=== PATIENT | female | born 1995 | race Caucasian/White ===

== ENCOUNTER 2016-09-28 02:09 | Emergency (ER) | payer OTHER ==
[2016-09-28 02:09] LABS: URINE SOURCE CLEAN CATCH
[~2016-09-28 02:09] MED LIST: BACTRIM DS TABL1 TA1 PO; COLD MED; COUGH; FLEXERIL10 MG PO; MUCINEX; NAPROSYN500 MG PO; NO MEDICATIONS; PRENATAL ONE T1 EACH PO; TYLENOL/CO12 MG/5 ML PO; ZITHROMAX PO
[2016-09-28 02:11] LABS: URINE APPEARANCE TURBID; URINE BILIRUBIN NEG (NEG); URINE BLOOD 3+ (NEG); URINE COLOR RED; URINE GLUCOSE NEG (NORM); URINE LEUKOCYTE ESTERASE TRACE (NEG); URINE NITRATE POS (NEG); URINE PROTEIN 2+ (NEG); URINE SPECIFIC GRAVITY >=1.030 (1.003-1.035)
[2016-09-28 02:12] LABS: URINE KETONE 3+ (NEG)
[2016-09-28 02:13] LABS: MICRO INDICATED? YES
[2016-09-28 02:14] LABS: CULTURE INDICATED? YES; URINE BACTERIA 1+ (NEG); URINE MUCUS PRESENT; URINE RBC 100-200 /[HPF] (0-2); URINE SQUAMOUS EPITHELIAL CELL OCCAS /[HPF]
== END 2016-09-28 02:40 | disposition home or self-care (01) ==
LOC: SED 02:09
PROVIDERS: Emergency Medicine
DX: O23.13 Infections of bladder in pregnancy, third trimester (principal); O24.113 Pre-existing type 2 diabetes mellitus, in pregnancy, third trimester; N30.01 Acute cystitis with hematuria; E11.9 Type 2 diabetes mellitus without complications; Z86.14 Personal history of Methicillin resistant Staphylococcus aureus infection
CPT/HCPCS: 81003; 87086; 99284

== ENCOUNTER 2016-11-24 02:59 | Emergency (ER) | payer OTHER ==
--- NOTE | ~2016-11-24 | CT16 ---
[facility] A Service of [facility] RADIOLOGY TEXT RESULTS PATIENT: KATY FARIA LOCATION: SED : [birth year] UNIT #: [id number] AGE: [address]: Frankie Sandoval MD SEX: F ORDER DR: [id number] [address] [address] [id number] E MR#: [id number] Acc #: [id number] NAME: KATY FARIA : 1995 SEX: F STUDY DATE/TIME: 11/24/2016 4:29 UNIT: SED ROOM: STUDY DESCRIPTION: CT Angio Chest for PE Attending Physician: Frankie Sandoval M.D. Ordering Physician: Frankie Sandoval M.D. MEDICAL IMAGING REPORT This report is preliminary unless electronic signature is present. EXAM CTA chest PE protocol INDICATION Mid chest pain tonight. PROCEDURE Contrast-enhanced CTA of the chest attention on opacification of the pulmonary arteries. Coronal 3-D MIP sagittal reformatted images reconstructed and submitted. This CT exam was performed with one or more of the following radiation dose reduction techniques: automatic exposure control, adjustment of mA and/or kV according to patient size, and iterative reconstruction. COMPARISON None. FINDINGS No pulmonary embolus or evidence for acute aortic injury. No adenopathy. Nonspecific gallbladder wall thickening or pericholecystic fluid. Lungs are clear. No aggressive-appearing bone lesion. IMPRESSION 1. No acute findings and no evidence of pulmonary embolus. 2. Gallbladder wall thickening, nonspecific. Correlate within the right upper quadrant abdominal symptoms. Dictated by... Bull Tiwari M.D. [facility] A Service of [facility] RADIOLOGY TEXT RESULTS PATIENT: KATY FARIA LOCATION: SED : [birth year] UNIT #: [id number] AGE: [address]: Frankie Sandoval MD SEX: F ORDER DR: THIS IS AN ELECTRONICALLY VERIFIED REPORT Bull Tiwari M.D. at 11/24/2016 10:27 PM EED/yordy TD: 11/24/2016 05:07 JOB #: [id number] MEDICAL IMAGING REPORT Page 1 of 1
--- NOTE | ~2016-11-24 | EKG ---
PATIENT: KATY FARIA UNIT #: [id number] Ventricular Rate: 92 BPM Atrial Rate: 92 BPM P-R Interval: 146 ms QRS Duration: 82 ms Q-T Interval: 366 ms QTC Calculation(Bezet): 452 ms P [place]: 39 degrees Calculated R [place]: 28 degrees Calculated T [place]: 44 degrees Diagnosis Line: Normal sinus rhythm Diagnosis Line: Nonspecific ST abnormality Diagnosis Line: Abnormal ECG Diagnosis Line: No previous ECGs available Diagnosis Line: Confirmed by GINA AGUILERA MD ([id number]) on Diagnosis Line: 11/24/2016 4:50:21 PM INTERPRETING MD: WILLY MADISON
[2016-11-24 03:46] LABS: BASOPHIL# 0.1 X10e3 (0-0.3); BASOPHIL% 1.4 % (0-2.5); DIFF IND NO; EOSINOPHIL% 0.2 % (0.0-7.0); HEMATOCRIT 40.7 % (35.0-45.0); HEMOGLOBIN 13.2 gm/dL (12.0-16.0); LYMPHOCYTE# 2.6 X10e3 (1.0-3.5); LYMPHOCYTE% 37.4 % (17.0-45.0); MEAN CELL VOLUME 77.9 FL (83-96); MEAN CORPUSCULAR HEMOGLOBIN 25.2 PG (28-34); MEAN CORPUSCULAR HGB CONC 32.4 g/dL (30-36); MEAN PLATELET VOLUME 10.1 FL (6.5-11.5); MONOCYTE# 0.4 X10e3 (0-1.0); MONOCYTE% 5.5 % (3.0-12.0); NEUTROPHIL# 3.8 X10e3 (1.5-7.1); NEUTROPHIL% 55.5 % (40-75); PLATELET COUNT 231 X10e3 (140-420); RED BLOOD COUNT 5.22 X10e (3.90-5.30); RED CELL DISTRIBUTION WIDTH 16.4 % (11.0-15.5); WHITE BLOOD COUNT 6.8 X10e3 (4.0-10.5)
[2016-11-24 03:52] LABS: INR 1.1; PROTHROMBIN TIME (PATIENT) 12.2 SECONDS (9.5-12.4)
[2016-11-24 03:58] LABS: POC - CKMB <1.0 ng/mL (0.0-7.9)
[2016-11-24 03:59] LABS: PARTIAL THROMBOPLASTIN TIME 26.4 SECONDS (25.6-38.1)
[2016-11-24 03:59] LABS: POC - TROPONIN <0.05 ng/mL (<=0.05)
[2016-11-24 04:01] LABS: ALBUMIN SERUM 3.5 g/dL (3.5-5.0); BILIRUBIN, DIRECT 0.1 mg/dL (0.0-0.2); BILIRUBIN,INDIRECT 0.3 mg/dL (0.0-0.9); BILIRUBIN,TOTAL 0.4 mg/dL (0.2-2.0); BUN/CREATININE RATIO 12.5; CALCIUM SERUM 8.8 mg/dL (8.4-10.2); CREATININE SERUM 0.8 mg/dL (0.6-1.4); GLOM FILT RATE Estimated 106.2 mL/min (>60); POTASSIUM 3.5 mmol/L (3.5-5.1); PROTEIN TOTAL SERUM 7.1 g/dL (6.0-8.3)
== END 2016-11-24 05:17 | disposition home or self-care (01) ==
LOC: SED 02:59
PROVIDERS: Emergency Medicine
DX: R07.9 Chest pain, unspecified (principal)
CPT/HCPCS: 36415; 71275; 80048; 80076; 82553; 83690; 84484; 85025; 85379; 85610; 85730; 93005; 96374; 99285; Q9967

== ENCOUNTER → 2017-01-05 | Outpatient (CLI) | payer OTHER ==
--- NOTE | ~2017-01-05 | NM22 ---
[facility] A Service of [facility] RADIOLOGY TEXT RESULTS PATIENT: KATY FARIA LOCATION: [facility] : [birth year] UNIT #: [id number] AGE: [address]: Rohit Campos MD SEX: F ORDER DR: [id number] [facility]. [place], [place] [address] [id number] O MR#: [id number] Acc #: [id number] NAME: KATY FARIA : 1995 SEX: F STUDY DATE/TIME: 01/05/2017 12:42 UNIT: [facility] ROOM: STUDY DESCRIPTION: NM Hepatobiliary W GB Pharm Attending Physician: Rohit Campos M.D. Referring Physician: Rohit Campos M.D. Ordering Physician: Rohit Campos M.D. Primary Care Physician: Rohit Campos M.D. MEDICAL IMAGING REPORT This report is preliminary unless electronic signature is present EXAM Hepatobiliary scan HISTORY 21-year-old female with elevated liver enzymes. Acid reflux. Possible gallbladder inflammation. FINDINGS Dynamic imaging was performed of the right upper quadrant following intravenous administration of 4.82 mCi Tc-99m Choletec. FINDINGS Examination demonstrates prompt hepatic uptake and biliary excretion at 15 minutes. Gallbladder activity is identified between 30-60 minutes with gallbladder filling at 60 minutes. The gallbladder ejection fraction study was performed following the slow intravenous administration of 2.2 mcg of IV Kinevac. Gallbladder ejection fraction was calculated at 82.5%. IMPRESSION Normal gallbladder ejection fraction. Dictated by... Buck Ewing M.D. THIS IS AN ELECTRONICALLY VERIFIED REPORT Buck Ewing M.D. at 01/06/2017 4:49 PM GALLO/ghanshyam TD: 01/05/2017 21:14 JOB #: [id number] [facility] A Service of [facility] RADIOLOGY TEXT RESULTS PATIENT: KATY FARIA LOCATION: [facility] : [birth year] UNIT #: [id number] AGE: [address]: Rohit Campos MD SEX: F ORDER DR: MEDICAL IMAGING REPORT Page 1 of 1 COPY
== END | disposition home or self-care (01) ==
LOC: CNUC 09:26
DX: R10.11 Right upper quadrant pain (principal)
CPT/HCPCS: 36415; 78227; 84703; A9537; J2805

== ENCOUNTER 2017-01-20 14:44 | Emergency (ER) | payer OTHER ==
--- NOTE | ~2017-01-20 | CR72 ---
[facility]. [facility] A Service of [facility] & [facility] RADIOLOGY TEXT RESULTS PATIENT: KATY FARIA LOCATION: SED : [birth year] UNIT #: [id number] AGE: [address]: Kraig Julian MD SEX: F ORDER DR: [id number] [address] [address] [id number] E MR#: [id number] Acc #: [id number] NAME: KATY FARIA : 1995 SEX: F STUDY DATE/TIME: 01/20/2017 15:22 UNIT: SED ROOM: STUDY DESCRIPTION: CR Chest Single View Portable Attending Physician: Kraig Julian M.D. Ordering Physician: Kraig Julian M.D. Primary Care Physician: Rohit Campos M.D. MEDICAL IMAGING REPORT This report is preliminary unless electronic signature is present. EXAM Portable chest. INDICATIONS Chest pain for 2 days. FINDINGS A portable upright view of the chest was obtained. The heart size and vascularity are normal. The lungs are clear. The bones are normal. COMPARISON 11/14/11. IMPRESSION No active disease. Dictated by... Santos Galeano M.D. THIS IS AN ELECTRONICALLY VERIFIED REPORT Santos Galeano M.D. at 01/21/2017 1:48 PM FEL/heaven TD: 01/21/2017 13:08 JOB #: [id number] MEDICAL IMAGING REPORT Page 1 of 1
--- NOTE | ~2017-01-20 | EKG ---
PATIENT: KATY FARIA UNIT #: [id number] Ventricular Rate: 74 BPM Atrial Rate: 74 BPM P-R Interval: 148 ms QRS Duration: 80 ms Q-T Interval: 394 ms QTC Calculation(Bezet): 437 ms P Raymond: 23 degrees Calculated R Raymond: 48 degrees Calculated T Raymond: 26 degrees Diagnosis Line: Normal sinus rhythm Diagnosis Line: Normal ECG Diagnosis Line: When compared with ECG of 24-NOV-2016 03:01, Diagnosis Line: No significant change was found Diagnosis Line: Confirmed by GINA AGUILERA MD ([id number]) on Diagnosis Line: 01/23/2017 1:49:48 PM INTERPRETING MD: WILLY MADISON
[2017-01-20 16:56] LABS: BASOPHIL% 0.3 % (0-2.5); EOSINOPHIL% 0.4 % (0.0-7.0); HEMATOCRIT 38.3 % (35.0-45.0); HEMOGLOBIN 12.8 gm/dL (12.0-16.0); LYMPHOCYTE# 2.2 X10e3 (1.0-3.5); LYMPHOCYTE% 37.6 % (17.0-45.0); MEAN CELL VOLUME 76.9 FL (83-96); MEAN CORPUSCULAR HEMOGLOBIN 25.6 PG (28-34); MEAN CORPUSCULAR HGB CONC 33.3 g/dL (30-36); MEAN PLATELET VOLUME 9.4 FL (6.5-11.5); MONOCYTE# 0.3 X10e3 (0-1.0); MONOCYTE% 5.3 % (3.0-12.0); NEUTROPHIL# 3.2 X10e3 (1.5-7.1); NEUTROPHIL% 56.4 % (40-75); PLATELET COUNT 263 X10e3 (140-420); RED BLOOD COUNT 4.98 X10e (3.90-5.30); RED CELL DISTRIBUTION WIDTH 14.5 % (11.0-15.5); WHITE BLOOD COUNT 5.7 X10e3 (4.0-10.5)
[2017-01-20 17:06] LABS: DIFF IND NO
[2017-01-20 17:31] LABS: ALBUMIN SERUM 3.7 g/dL (3.5-5.0); BILIRUBIN, DIRECT 0.1 mg/dL (0.0-0.2); BILIRUBIN,INDIRECT 0.2 mg/dL (0.0-0.9); BILIRUBIN,TOTAL 0.3 mg/dL (0.2-2.0); BUN/CREATININE RATIO 14.44; CALCIUM SERUM 8.2 mg/dL (8.4-10.2); CREATININE SERUM 0.9 mg/dL (0.6-1.4); GLOM FILT RATE Estimated 92.1 mL/min (>60); POTASSIUM 3.9 mmol/L (3.5-5.1); PROTEIN TOTAL SERUM 6.9 g/dL (6.0-8.3)
== END 2017-01-20 18:01 | disposition home or self-care (01) ==
LOC: SED 14:44
PROVIDERS: Emergency Medicine
DX: R07.9 Chest pain, unspecified (principal); I10 Essential (primary) hypertension; R10.11 Right upper quadrant pain
CPT/HCPCS: 36415; 71010; 80048; 80076; 85025; 85379; 93005; 99285